=== PATIENT | male | born 1945 | race Caucasian/White ===

== ENCOUNTER 2020-02-08 07:01 | Outpatient (CLI) | payer MEDICARE, OTHER, SELFPAY ==
--- NOTE | 2020-02-08 07:00 | XRR_ITS ---
PROCEDURE INFORMATION: Exam: XR Abdomen, 1 View Exam date and time: 02/08/2020 7:10 AM Age: 74 years old Clinical indication: Condition or disease; Kidney or ureter condition; Calculus (stone) in kidney TECHNIQUE: Imaging protocol: XR of the abdomen. Views: Frontal supine view of the abdomen. 1 View. COMPARISON: CR XR KUB [id number] 08/20/2018 10:14 AM FINDINGS: Gastrointestinal tract: There is increased retained stool within the colon, compatible with constipation. Organs: No calcifications project over the expected location of either kidney or along the course of either ureter. Vasculature: Pelvic calcifications are presumably phleboliths. Bones/joints: Unremarkable. XR/XR KUB [id number] IMPRESSION: No radiopaque calculi identified.
== END 2020-02-08 07:02 | disposition home or self-care (01) ==
LOC: RAD 07:07
PROVIDERS: PCP Nurse Practitioner Family; Visit Provider Urology
DX: N20.0 Calculus of kidney (principal); N40.0 Benign prostatic hyperplasia without lower urinary tract symptoms
CPT/HCPCS: 74018; 81001

== ENCOUNTER → 2020-03-15 15:20 | Outpatient (BNVA) | payer MEDICARE, OTHER, SELFPAY | PROVIDERS: PCP Nurse Practitioner Family; Visit Provider Dermatology | DX: D48.9 Neoplasm of uncertain behavior, unspecified (principal); L57.0 Actinic keratosis; B35.1 Tinea unguium | CPT/HCPCS: 11102; 11103; 17000; 17003; 88304; 88305; 99203; 99204 ==

== ENCOUNTER → 2020-04-05 11:02 | Outpatient (BNVA) | payer MEDICARE, OTHER, SELFPAY | PROVIDERS: PCP Nurse Practitioner Family; Visit Provider Dermatology | DX: C44.91 Basal cell carcinoma of skin, unspecified (principal); C44.619 Basal cell carcinoma of skin of left upper limb, including shoulder; D09.9 Carcinoma in situ, unspecified; D48.9 Neoplasm of uncertain behavior, unspecified; D04.61 Carcinoma in situ of skin of right upper limb, including shoulder | CPT/HCPCS: 11606; 12032; 17000; 88304; 88305 ==

== ENCOUNTER → 2020-04-19 08:31 | Outpatient (BNVA) | payer MEDICARE, OTHER, SELFPAY | PROVIDERS: PCP Nurse Practitioner Family; Visit Provider Dermatology | DX: Z48.02 Encounter for removal of sutures (principal) | CPT/HCPCS: 99212 ==

== ENCOUNTER → 2020-06-05 13:18 | Outpatient (BNVA) | payer MEDICARE, OTHER, SELFPAY | PROVIDERS: PCP Nurse Practitioner Family; Visit Provider Dermatology | DX: D48.9 Neoplasm of uncertain behavior, unspecified (principal) | CPT/HCPCS: 88304 ==

== ENCOUNTER 2020-08-30 12:41 | Outpatient (CLI) | payer MEDICARE, OTHER, SELFPAY ==
--- NOTE | 2020-08-30 12:47 | XR_ITS ---
WS: [id number] HAND RIGHT TECHNIQUE: 3 views of the right hand CLINICAL INFORMATION: DORSAL HAND HARD EDEMA POST TRAUMATIC COMPARISON: None. FINDINGS: Soft tissue edema. No visualized fractures. Tiny chronic ulna styloid avulsion. 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 No acute fractures.
== END 2020-08-30 12:42 | disposition home or self-care (01) ==
LOC: RADWPI 12:45
PROVIDERS: PCP Nurse Practitioner Family; Visit Provider Nurse Practitioner Family
DX: R60.0 Localized edema (principal)
CPT/HCPCS: 73130

== ENCOUNTER 2021-02-07 07:38 | Outpatient (CLI) | payer MEDICARE, OTHER, SELFPAY ==
--- NOTE | 2021-02-07 07:30 | XR_ITS ---
WS: [id number] KUB, AP view, 02/07/2021 Clinical Data: STONES Comparison: KUB, 02/08/2020. Findings: No abnormal intraabdominal masses or calcifications are seen. There is no dilatated small bowel or ev idence of obstruction. There is fecal material throughout the colon. There are phleboliths in the true pelvis. XR/XR KUB [id number] Impression: Negative KUB.
== END 2021-02-07 07:39 | disposition home or self-care (01) ==
LOC: RAD 07:41
PROVIDERS: PCP Nurse Practitioner Family; Visit Provider Urology
DX: N20.9 Urinary calculus, unspecified (principal)
CPT/HCPCS: 74018; 81003

== ENCOUNTER → 2021-04-24 14:38 | Outpatient (BNVA) | payer MEDICARE, OTHER, SELFPAY | PROVIDERS: PCP Nurse Practitioner Family; Visit Provider Podiatrist Foot & Ankle Surgery | DX: M79.671 Pain in right foot (principal); M19.071 Primary osteoarthritis, right ankle and foot | CPT/HCPCS: 73630 ==

== ENCOUNTER 2022-02-07 08:33 | Outpatient (CLI) | payer MEDICARE, SELFPAY ==
--- NOTE | 2022-02-07 08:15 | XR_ITS ---
WS: [id number] XR KUB [id number] REASON FOR EXAM: History of Kidney Stones FINDINGS: No urinary tract calculi identified. No free air or retroperitoneal air. Unremarkable bowel gas pattern. Degenerative spondylosis lumbar spine. XR/XR KUB [id number] IMPRESSION: No urinary tract calculi identified. Abdomen otherwise unremarkable.
== END 2022-02-07 08:34 | disposition home or self-care (01) ==
PROVIDERS: PCP Nurse Practitioner Family; Visit Provider Urology
DX: N52.9 Male erectile dysfunction, unspecified (principal); R39.15 Urgency of urination; Z87.442 Personal history of urinary calculi
CPT/HCPCS: 74018; 81003; 99213

== ENCOUNTER → 2022-04-23 08:04 | Outpatient (BNVA) | payer MEDICARE, OTHER, SELFPAY | PROVIDERS: PCP Nurse Practitioner Family; Visit Provider Podiatrist Foot & Ankle Surgery | DX: M19.071 Primary osteoarthritis, right ankle and foot (principal) | CPT/HCPCS: 99214 ==

== ENCOUNTER 2022-10-30 19:31 | Emergency (ER) | payer MEDICARE, OTHER, SELFPAY ==
[2022-10-30 19:35] VITALS: BP 149/84; PULSE 81; RESP 16; TEMP 36.6; O2SAT 98
--- NOTE | 2022-10-30 19:52 | XRR_ITS ---
PROCEDURE INFORMATION: Exam: XR Right Foot Exam date and time: 10/30/2022 8:14 PM Age: 77 years old Clinical indication: Injury or trauma; Other: Dropped a piece of metal on it; Blunt trauma and swelling (edema); Foot; Right TECHNIQUE: Imaging protocol: Radiologic exam of the right foot. Views: 3 or more views. COMPARISON: No relevant prior studies available. FINDINGS: Bones/joints: Nondisplaced transverse fractures noted through the base of the 4th proximal phalanx and 5th distal phalanx. Soft tissues: Normal. XR/XR foot RT min 3V* [id number] IMPRESSION: Nondisplaced fractures through the base of the 4th proximal phalanx and 5th distal phalanx.
--- NOTE | 2022-10-30 21:06 | W.ED.EXTPRO ---
HPI - Extremity Problem General: Chief complaint: Extremity Injury, Lower Stated complaint: right foot injury Time Seen by Provider: 10/30/22 20:28 Source: patient Mode of arrival: ambulatory Limitations: no limitations History of Present Illness: 77-year-old male states he did dropped a piece of equipment on his right foot he does have bruising and swelling to his right foot this happened this afternoon he has pain over his distal toes mainly the fourth and third toe denies any other injuries. He rates his pain a 5 out of 10 worse with walking improved with rest Associated symptoms: Deny chest pain, fever(s) or rash Review of Systems Const: Denies: fever(s), chills, body aches or change in appetite Eyes: Denies: blurry vision or eye discomfort ENMT: Denies: throat pain or dental pain Card: Denies: chest pain Resp: Denies: dyspnea GI: Denies: abdominal pain, nausea, vomiting or diarrhea : Denies: dysuria Musc: Reports: extremity pain Skin/Breast: Denies: rash Neuro: Denies: headache(s) Psych: Denies: depression Jorge L/Lymph: Denies: easy bruising All/Imm: Denies: urticaria PFSH ED PFSH: Medical History BPH (benign prostatic hyperplasia) Erectile dysfunction History of kidney stones History of nonmelanoma skin cancer Hypertension Urinary urgency Surgical History S/P ureteral stent placement Family History Mother Thyroid disease Other Cancer Hypertension Social History Smoking and tobacco status: never smoked Alcohol intake: never Marital status: Current occupational status: retired Physical Exam Const: COMMON NORMALS: no acute distress and patient oriented x3 HENMT: COMMON NORMALS: normocephalic HEAD & SCALP: normocephalic Eye: COMMON NORMALS: conjunctivae normal CONJUNCTIVA: Yes conjunctivae normal Neck/C-Spine: COMMON NORMALS: supple Chest: COMMONS NORMALS: normal inspection of the chest Resp: COMMON NORMALS: normal respiratory effort Cardio: COMMON NORMALS: regular rate RATE: regular rate GI: INSPECTION: Yes normal to inspection Extremity: OTHER: Contusion noted to his right foot tenderness over base of his fourth and third toe Neuro: COMMON NORMALS: patient oriented x3 Psych: COMMON NORMALS: mental status grossly normal Skin: COMMON NORMALS: no rashes or lesions noted GENERAL SKIN EXAM: no rashes or lesions noted Course Vital Signs: Vital signs: Vital Signs Temperature 97.8 F 10/30/22 19:35 Pulse Rate 81 10/30/22 19:35 Respiratory Rate 16 10/30/22 19:35 Blood Pressure 149/84 10/30/22 19:35 Pulse Oximetry 98 10/30/22 19:35 Oxygen Delivery Me thod 10/30/22 19:35 MDM - Extremity (Nontraumatic) Medical Decision Making Patient presents here with a toe fracture will place in a hard sole shoe he does have crutches at home we will get him follow-up with podiatry he is to ice. Discharge Plan Discharge Patient Disposition: Home Clinical Impression: Fracture of toe Qualifiers: Encounter type: initial encounter Toe: lesser toe Fracture type: closed Phalanx: proximal Fracture alignment: nondisplaced Laterality: right Qualified Code(s): S92.514A - Nondisplaced fracture of proximal phalanx of right lesser toe(s), initial encounter for closed fracture Condition: Stable Prescriptions: New hydrocodone-acetaminophen 5-325 mg tablet 1 tab PO Q6H PRN (Reason: pain) Qty: 14 0RF No Action glucosamine sulfate [Glucosamine] 500 mg tablet 500 mg PO BID Rx Instructions: administer with meals losartan 25 mg tablet 25 mg PO DAILY meloxicam 15 mg tablet 15 mg PO DAILY Qty: 30 6RF Discharge Orders: Discharge ED (Routine); Ordered 10/30/22 Ordered By: Rigoberto Garcia Referrals: Ji Presley MD [Primary Care Provider] - Vick Herr DPM [Physician] - 1-3 days Discharge Diet: Advance as tolerated Discharge Activity: Increase activity as tolerated Patient Instructions: Toe Fracture (ED), Opioid Safety Coding Level of Care Code ED Learning Strategist for Simi Falk
[2022-10-30] MEDS: HYDROcodone-acetaminophen 5-325 mg Tablet 1 TAB PO (21:13)
--- NOTE | 2022-10-31 09:40 | DCPLANNER ---
Addendum entered by Sruthi Seaman 11/01/22 07:56: Patient had a follow up appointment scheduled with podiatry on 10.31.22 - patient did attend appointment Original Note: dry cleaning manager had message to schedule a follow up appointment for patient with podiatry. dry cleaning manager sent patients information to the front office staff at podiatry. Patients information will be printed and reviewed. Clinic will call patient with appointment information.
== END 2022-10-30 21:29 | disposition home or self-care (01) ==
PROVIDERS: Emergency Provider Emergency Medicine; PCP Family Medicine
DX: S92.514A Nondisplaced fracture of proximal phalanx of right lesser toe(s), initial encounter for closed fracture (principal); I10 Essential (primary) hypertension; W20.8XXA Other cause of strike by thrown, projected or falling object, initial encounter
CPT/HCPCS: 73630; 99283

== ENCOUNTER → 2022-10-31 09:41 | Outpatient (BNVA) | payer MEDICARE, OTHER, SELFPAY | PROVIDERS: PCP Family Medicine; Referring Provider Emergency Medicine; Visit Provider Podiatrist Foot & Ankle Surgery | DX: S92.501A Displaced unspecified fracture of right lesser toe(s), initial encounter for closed fracture (principal); W30.89XA Contact with other specified agricultural machinery, initial encounter | CPT/HCPCS: 99213 ==

== ENCOUNTER → 2022-11-27 14:03 | Outpatient (BNVA) | payer MEDICARE, OTHER, SELFPAY | PROVIDERS: PCP Family Medicine; Visit Provider Podiatrist Foot & Ankle Surgery | DX: S92.341A Displaced fracture of fourth metatarsal bone, right foot, initial encounter for closed fracture (principal); X58.XXXA Exposure to other specified factors, initial encounter | CPT/HCPCS: 73630; 99213 ==

== ENCOUNTER → 2023-04-22 08:00 | Outpatient (BNVA) | payer MEDICARE, OTHER, SELFPAY | PROVIDERS: PCP Family Medicine; Visit Provider Podiatrist Foot & Ankle Surgery | DX: M19.071 Primary osteoarthritis, right ankle and foot (principal) | CPT/HCPCS: 99213 ==

== ENCOUNTER → 2023-05-07 13:28 | Outpatient (BNVA) | payer MEDICARE, OTHER, SELFPAY | PROVIDERS: PCP Family Medicine; Visit Provider Nurse Practitioner Family | DX: L82.1 Other seborrheic keratosis (principal); D22.5 Melanocytic nevi of trunk; L57.8 Other skin changes due to chronic exposure to nonionizing radiation; L81.4 Other melanin hyperpigmentation; L57.0 Actinic keratosis | CPT/HCPCS: 17000; 99213 ==

== ENCOUNTER → 2023-11-06 08:20 | Outpatient (BNVA) | payer MEDICARE, OTHER, SELFPAY | PROVIDERS: PCP Family Medicine; Visit Provider Nurse Practitioner Family | DX: L57.0 Actinic keratosis (principal); L23.89 Allergic contact dermatitis due to other agents; L82.1 Other seborrheic keratosis; D22.5 Melanocytic nevi of trunk; L57.8 Other skin changes due to chronic exposure to nonionizing radiation; L81.4 Other melanin hyperpigmentation | CPT/HCPCS: 17000; 99214 ==

== ENCOUNTER 2024-06-10 18:21 | Inpatient (IN) | payer MEDICARE, OTHER, SELFPAY ==
[2024-06-10 19:15] VITALS: BP 114/65; PULSE 102; RESP 20; TEMP 36.8; O2SAT 93; BMI 32.5
--- NOTE | 2024-06-10 19:23 | USR_ITS ---
PROCEDURE INFORMATION: Exam: US Scrotum Exam date and time: 06/10/2024 9:16 PM Age: 78 years old Clinical indication: Scrotum pain; Patient HX: Recent UTI; Additional info: Right testicular pain TECHNIQUE: Imaging protocol: Real-time ultrasound of the scrotum and contents with color Doppler and image documentation. COMPARISON: No relevant prior studies available. FINDINGS: Right testicle: The right testis is unremarkable. The right testis measures 4.9 x 2.9 x 3.4 cm. There is flow on Doppler imaging. Left testicle: The left testis is unremarkable. The left testis measures 4.1 x 2.9 x 3.5 cm. There is flow on Doppler imaging. Epididymides: Enlarged right epididymis with hypoechoic, mildly heterogenous echotexture. There is no abnormal flow on Doppler imaging, these findings may represent sequela of prior epididymitis. The left epididymis is unremarkable. Scrotum/soft tissues: Complex hydroceles with internal debris bilaterally, small on the right and large on the left. US/US scrotum [id number] IMPRESSION: 1. Complex hydroceles with internal debris bilaterally, small on the right and large on the left. 2. Enlarged right epididymis with hypoechoic, mildly heterogenous echotexture. There is no abnormal flow on Doppler imaging, these findings may represent sequela of prior epididymitis.
--- NOTE | 2024-06-10 19:24 | ECG_ITS ---
[facility]10 Pat Name: Enriqueta Kim Department: Room: Gender: Male Lens Finisher: : 1945 Requested By: Charo Colbert Order Number: [id number] Navi MD: Anushka Agarwal M.D. Measurements Intervals [place] Rate: 98 P: 11 TN: 238 QRS: 87 QRSD: 102 T: 9 QT: 331 QTc: 423 Interpretive Statements SINUS RHYTHM WITH FIRST DEGREE AV BLOCK LOW QRS VOLTAGE IN PRECORDIAL LEADS [QRS DEFLECTION < 1.0 mV IN CHEST LEADS] INCOMPLETE RIGHT BUNDLE BRANCH BLOCK PROBABLE INFERIOR MYOCARDIAL INFARCTION , PROBABLY OLD No previous ECG available for comparison Electronically Signed On 06-11-2024 12:21:03 CDT by Anushka Agarwal M.D. [email or web address]
--- NOTE | 2024-06-10 19:24 | XRR_ITS ---
PROCEDURE INFORMATION: Exam: XR Chest Exam date and time: 06/10/2024 7:34 PM Age: 78 years old Clinical indication: Other: Weakness TECHNIQUE: Imaging protocol: Radiologic exam of the chest. Views: 1 view. COMPARISON: No relevant prior studies available. FINDINGS: Lungs: Lungs are clear bilaterally. Pleural spaces: No pleural effusion. No pneumothorax. Heart/Mediastinum: Cardiac silhouette is moderately enlarged. Mediastinal contours are unremarkable. Vasculature: Vascular calcifications in the aorta. Bones/joints: Unremarkable for age. XR/XR chest 1V portable [id number] IMPRESSION: 1. No acute cardiopulmonary process. 2. Incidental/nonacute findings are listed in the report.
--- NOTE | 2024-06-10 19:26 | CTR_ITS ---
PROCEDURE INFORMATION: Exam: CT Head Without Contrast Exam date and time: 06/10/2024 7:53 PM Age: 78 years old Clinical indication: Other: Weakness, dizzy TECHNIQUE: Imaging protocol: Computed tomography of the head without contrast. Sagittal and coronal reformatted images were created and reviewed. Radiation optimization: All CT scans at this facility use at least one of these dose optimization techniques: automated exposure control; mA and/or kV adjustment per patient size (includes targeted exams where dose is matched to clinical indication); or iterative reconstruction. COMPARISON: No relevant prior studies available. RADIATION DOSE METRICS: Total DLP (mGy-cm): 1076.98 FINDINGS: Brain: No acute intracranial hemorrhage. No acute infarct. No intra-axial or extra-axial masses. Dhaliwal-white matter differentiation is preserved. No cerebral edema. No extra-axial fluid collections. No midline shift. No evidence for Chiari 1 malformation. Mild atrophy of the brain parenchyma. Mildly decreased attenuation in the deep white matter, consistent with mild chronic microangiopathic change. Cerebral ventricles: No hydrocephalus. Paranasal sinuses: Visualized paranasal sinuses are clear. Mastoid air cells: Visualized mastoid air cells are clear. Orbital cavities: No acute abnormality in the visualized orbits. Nasal cavity: Moderate right nasal septal deviation. Bones: Unremarkable. No acute fracture. Soft tissues: No acute abnormality of the extracranial soft tissues. Vasculature: Moderate atherosclerotic changes in the visualized arteries. CT/CT head wo con* [id number] IMPRESSION: 1. No acute abnormality of the brain. 2. Mild atrophy of the brain parenchyma. 3. Mild chronic white matter microangiopathic change. 4. Incidental/nonacute findings are listed in the report.
--- NOTE | 2024-06-10 19:26 | ED_ITS ---
HPI - Male Genitourinary 2 General: Chief complaint: Urogenital-Male Stated complaint: severe low right groin pain dizzy Time Seen by Provider: 06/10/24 19:20 History of Present Illness: 78-year-old man with history of hyperten favio who presents to the emergency room with weakness. He says today he has felt more weak and had become lightheaded and off balance. He is also having some pain in his right testicle. He recently was treated for urinary tract infection. He said he had been having some urinary incontinence. Seems that has improved some. No nausea or vomiting. No shortness of breath. No chest pain. No cough. No abdominal pain. No focal motor deficits. No slurred speech. Related Data Home Medications Medication Instructions Recorded Confirmed glucosamine sulfate 500 mg tablet 500 mg PO BID 03/15/20 04/22/23 (Glucosamine) losartan 25 mg tablet 25 mg PO DAILY 02/07/21 04/22/23 Previous Rx's Medication Instructions Recorded hydrocodone 5 mg-acetaminophen 325 1 tab PO Q6H PRN pain #14 tabs 10/30/22 mg tablet meloxicam 15 mg tablet See Rx Instructions .Route 11/04/23 .COMPLEX #30 tabs Allergies Allergy/AdvReac Type Severity Reaction Status Date / Time venom-wasp Allergy swelling Verified 04/22/23 08:02 Review of Systems 2 Narrative: Constitutional symptoms: Negative except as documented in HPI. Skin symptoms: Negative except as documented in HPI. Eye symptoms: Negative except as documented in HPI. ENMT symptoms: Negative except as documented in HPI. Respiratory symptoms: Negative except as documented in HPI. Cardiovascular symptoms: Negative except as documented in HPI. Gastrointestinal symptoms: Negative except as documented in HPI. Genitourinary symptoms: Negative except as documented in HPI. Musculoskeletal symptoms: Negative except as documented in HPI. Neurologic symptoms: Negative except as documented in HPI. Psychiatric symptoms: Negative except as documented in HPI. Endocrine symptoms: Negative except as documented in HPI. PFSH ED 2 PFSH: Medical History BPH (benign prostatic hyperplasia) Erectile dysfunction History of kidney stones History of nonmelanoma skin cancer Hypertension Urinary urgency Surgical History S/P ureteral stent placement Family History Mother Thyroid disease Other Cancer Hypertension Social History Smoking and tobacco/nicotine status: never used tobacco/nicotine Alcohol intake: never Substance/Drug Use: never Marital status: Current occupational status: retired Physical Exam 2 Narrative: EXAM NARRATIVE: General: Alert, no acute distress. Skin: Warm, dry. Head: Normocephalic, atraumatic. Neck: Supple, trachea midline. Eye: Extraocular movements are intact. Ears, nose, mouth and throat: mucosa moist. Cardiovascular: Regular, Normal peripheral perfusion. Respiratory: Lungs are clear to auscultation, respirations are non-labored, breath sounds are equal, Symmetrical chest wall expansion. Gastrointestinal: Soft, Nontender, Non distended Musculoskeletal: Normal ROM, no deformity. Neurological: Alert and oriented, No focal neurological deficit observed. Psychiatric: Cooperative, appropriate mood & affect. Course 2 Vital Signs: Vital signs: Vital Signs Temperature 98.2 F 06/10/24 19:15 Pulse Rate 96 06/10/24 22:07 Respiratory Rate 16 06/10/24 22:07 Blood Pressure 113/58 06/10/24 22:07 Pulse Oximetry 93 06/10/24 22:07 Oxygen Delivery Me thod Room Air 06/10/24 22:07 MDM - Male Medical Decision Making Medical decision making: Differential diagnosis for patient presenting with generalized weakness including but not limited to and based on the above HPI, review of systems and physical exam: Sepsis. Dehydration. Renal failure. Electrolyte abnormalities. Anemia. Congestive heart failure. Hypotension. Coronary syndrome. Hepatitis. Cirrhosis. Infections such as pneumonia, urinary tract infection, [place]ne illness, Cellulitis, Viral infections including influenza and Covid-19. Workup: labwork and lab/exam driven imaging ordered to evaluate, rule in and rule out above pathologies. EKG: Time 1928. Rate 98. Normal sinus rhythm, No ST-T changes, no ectopy, first degree AV Block, EP Interpretation. This was reviewed and interpreted by myself the ER physician at 193. Repeat EKG: Time 2147. Rate 76. Normal sinus rhythm, No ST-T changes, no ectopy, first degree AV Block, EP Interpretation. This was reviewed and interpreted by myself the ER physician at 2150. Heart rate has decreased by about 20. No other acute changes from previous EKG done today here in the emergency room CT head: Patient had some confusion so a CT of the head was ordered. No acute intracranial process. no intracranial hemorrhage, no evidence of infarct. no evidence of acute fracture.This was reviewed and interpreted by myself the ER physician. Chest x-ray: No acute process. No infiltrate. No pneumothorax. This was reviewed and interpreted by myself the ER physician. Lab Review: Laboratory results were reviewed and interpreted by myself the emergency room physician. Significant leukocytosis with a count of 30,000. No anemia. Creatinine are elevated above his baseline at 22 and 1.5. Ultrasound of the scrotum shows a cystocele and epididymitis. This was reviewed and interpreted by myself the emergency room physician. I also reviewed the radiology report. CT of the abdomen pelvis without contrast: There is no ureteral stones or obstruction. Appears to have new cystitis and several other changes that are listed below in the radiology official read. This was reviewed and interpreted by myself the emergency room physician. I also reviewed the radiology report. I reviewed the patient's medical record. Reexamination: Patient has had some nausea and vomiting. His blood pressure has improved some with fluids. He is had no altered mental status or no focal motor deficits here. No increased work of breathing. No oxygen requirements. He does tell me that he was treated with Macrobid for the UTI. Consultation: I spoke with Dr. Ortiz who is on-call for the hospitalist service who agrees to admission. Assessment and plan: Urinary tract infection Cystitis Sepsis Leukocytosis Hypotension Lactic acidosis ?Zofran for vomiting -2 L normal saline bolus. Fluid volumes based on ideal body weight. -Broad-spectrum antibiotics were administered. Zyvox and cefepime. Urine is nitrite negative so would have concern for gram-positive's. -Sepsis quality measures. -Lactic acid with a reflex was ordered. -Blood cultures were ordered. -I discussed the patient with the hospitalist on-call who is admitting the patient. - Discussed findings and plan with patient. Answered any questions. - All laboratory values were reviewed and interpreted personally by myself, the ER physician - All imaging was reviewed and interpreted personally by myself, the ER physician. - Evaluation and treatment of this problem were appropriate in the emergency setting Critical care -I spent a total of >35 minutes of critical care time managing the patient, independent of any other practitioner. -The time involved in the performance of separately reportable procedures was not counted towards critical care time. Lab Data 06/10/24 20:20 06/10/24 20:20 Radiology Impressions Scrotum Ultrasound 06/10/24 19:23 IMPRESSION: 1. Complex hydroceles with internal debris bilaterally, small on the right and large on the left. 2. Enlarged right epididymis with hypoechoic, mildly heterogenous echotexture. There is no abnormal flow on Doppler imaging, these findings may represent sequela of prior epididymitis. Chest X-Ray 06/10/24 19:24 IMPRESSION: 1. No acute cardiopulmonary process. 2. Incidental/nonacute findings are listed in the report. Head CT 06/10/24 19:26 IMPRESSION: 1. No acute abnormality of the brain. 2. Mild atrophy of the brain parenchyma. 3. Mild chronic white matter microangiopathic change. 4. Incidental/nonacute findings are listed in the report. Abdomen/Pelvis CT 06/10/24 22:00 IMPRESSION: 1. Interval development of diffuse, mild bladder wall thickening. In the correct clinical setting, this may suggest cystitis. Recommend correlation with laboratory findings. Alternatively, this may be secondary to chronic outlet obstruction. 2. Stable hypodense focus in the liver compared with 11/06/2016. Stability suggests this is due to a benign finding such as a hepatic hemangioma. 3. 2.3 x 2.2 cm hypodense/isodense focus with rim calcification in the anterior spleen. The amount of rim calcification has increased, the focus is stable in size however. Findings may represent increasing calcification within an old hematoma. 4. Stable mild enlargement of the prostate. Stable prostate calcification. 5. Sigmoid diverticulosis. No evidence for diverticulitis. 6. There is ossification at the posterior aspect of the right sacroiliac joint at the level of S2 of uncertain etiology, this may be sequela of degenerative change. 7. Incidental/nonacute findings are listed in the report. Laboratory Results WBC 30.23 10^3/uL (3.29-11.43) H* 06/10/24 20:20 RBC 4.93 10^6/uL (3.85-5.65) 06/10/24 20:20 Hgb 14.10 g/dL (11.27-16.99) 06/10/24 20:20 Hct 44.4 % (37-53) 06/10/24 20:20 MCV 90.1 fl (82-101) 06/10/24 20:20 MCH 28.6 pg (27-33) 06/10/24 20:20 MCHC 31.8 g/dL (30-55) 06/10/24 20:20 RDW 13.8 % (12.1-15.1) 06/10/24 20:20 Plt Count 301 10^3/cmm (157-399) 06/10/24 20:20 MPV 9.3 fL (7.4-10.4) 06/10/24 20:20 Neut % (Auto) 84.4 % 06/10/24 20:20 Lymph % (Auto) 7.4 % 06/10/24 20:20 Bertie % (Auto) 6.4 % 06/10/24 20:20 Eos % (Auto) 0.0 % 06/10/24 20:20 Baso % (Auto) 0.3 % 06/10/24 20:20 Neut # (Auto) 25.51 10^3/uL (1.8-7.7) H 06/10/24 20:20 Lymph # (Auto) 2.3 10^3/uL (0.8-4.8) 06/10/24 20:20 Bertie # (Auto) 1.9 10^3/uL (0.2-0.9) H 06/10/24 20:20 Eos # (Auto) 0.0 10^3/uL (0.0-0.8) 06/10/24 20:20 Baso # (Auto) 0.1 10^3/uL (0.0-0.1) 06/10/24 20:20 Nucleated RBC % (auto) 0 % 06/10/24 20:20 Nucleated RBCs # 0.0 /100WBC 06/10/24 20:20 Sodium 133 mmol/L (136-145) L 06/10/24 20:20 Potassium 4.3 mmol/L (3.5-5.1) 06/10/24 20:20 Chloride 100 mmol/L (98-107) 06/10/24 20:20 Carbon Dioxide 20 mmol/L (22-29) L 06/10/24 20:20 Anion Gap 17.3 (5-19) 06/10/24 20:20 BUN 22 mg/dL (8-23) 06/10/24 20:20 Creatinine 1.5 mg/dL (0.7-1.2) H 06/10/24 20:20 GFR Calculation Not Reportable 06/10/24 20:20 Glucose 150 mg/dL (65-115) H 06/10/24 20:20 Calculated Osmolality 282 mOsm/kg (285-295) L 06/10/24 20:20 Lactic Acid 2.8 mmol/L (0.5-2.2) H 06/10/24 20:20 Calcium 8.8 mg/dL (8.5-10.5) 06/10/24 20:20 Total Bilirubin 0.6 mg/dL (0.15-1.2) 06/10/24 20:20 AST 12 U/L (0-40) 06/10/24 20:20 ALT 12 U/L (0-41) 06/10/24 20:20 Alkaline Phosphatase 78 U/L (40-130) 06/10/24 20:20 Total Protein 6.5 g/dL (6.6-8.7) L 06/10/24 20:20 Albumin 3.9 g/dL (3.5-5.2) 06/10/24 20:20 Globulin 2.6 g/dL (1.3-4.6) 06/10/24 20:20 Urine Color Dark yellow (Yellow) A 06/10/24 20:15 Urine Appearance Cloudy (CLEAR) A 06/10/24 20:15 Urine pH 5.0 (5-7) 06/10/24 20:15 Ur Specific [place] 1.026 (1.005-1.030) 06/10/24 20:15 Urine Protein Trace (Negative) A 06/10/24 20:15 Urine Glucose (UA) Negative (Normal) 06/10/24 20:15 Urine Ketones Negative (Negative) 06/10/24 20:15 Urine Blood 3+ (Negative) A 06/10/24 20:15 Urine Nitrate Negative (Negative) 06/10/24 20:15 Urine Bilirubin Negative (Negative) 06/10/24 20:15 Urine Urobilinogen 1.0 mg/dL (Negative) 06/10/24 20:15 Ur Leukocyte Esterase 2+ (Negative) A 06/10/24 20:15 Urine RBC 21-50 /hpf (0-2) H 06/10/24 20:15 Urine WBC 21-50 /hpf (0-5) H 06/10/24 20:15 Ur Squamous Epith Cells 11-20 /hpf (0-5) 06/10/24 20:15 Amorphous Sediment Not Reportable 06/10/24 20:15 Urine Bacteria None seen /hpf (NONE) 06/10/24 20:15 Hyaline Casts 24.38 /lpf 06/10/24 20:15 Urine Mucus 3+ /hpf 06/10/24 20:15 Coronavirus (PCR) Negative (Negative) 06/10/24 20:07 Influenza A (PCR) Negative (Negative) 06/10/24 20:07 Influenza Type B (PCR) Negative (Negative) 06/10/24 20:07 RSV (PCR) Negative (Negative) 06/10/24 20:07 All radiology interpretation(s) finalized by discharge Discharge Plan Discharge Patient Disposition: Admitted As Inpatient Clinical Impression: Urinary tract infection, Sepsis, Cystitis Condition: Stable Coding Level of Care Code ED Tube Station Attendant for Simi Falk
[2024-06-10 20:33] LABS: Basophils # 0.1 10^3/uL (0.0-0.1); Basophils % 0.3 %; Hematocrit 44.4 % (37-53); Lymphocytes # 2.3 10^3/uL (0.8-4.8); Lymphocytes % 7.4 %; Mean Corpuscular HGB Conc 31.8 g/dL (30-55); Mean Corpuscular Hemoglobin 28.6 pg (27-33); Mean Corpuscular Volume 90.1 fl (82-101); Mean Platelet Volume 9.3 fL (7.4-10.4); Monocytes # 1.9 10^3/uL (0.2-0.9); Monocytes % 6.4 %; Neutrophils # 25.51 10^3/uL (1.8-7.7); Neutrophils % 84.4 %; Nucleated Red Blood Cells % 0 %; Platelet Count 301 10^3/cmm (157-399); Red Blood Count 4.93 10^6/uL (3.85-5.65); Red Cell Distribution Width 13.8 % (12.1-15.1)
[2024-06-10 20:36] LABS: White Blood Count 30.23 10^3/uL (3.29-11.43)
[2024-06-10 20:52] LABS: Lactic Sepsis W/Reflex 2.8 mmol/L (0.5-2.2)
[2024-06-10 20:56] LABS: Alanine Aminotransferase 12 U/L (0-41); Albumin Level 3.9 g/dL (3.5-5.2); Alkaline Phosphatase 78 U/L (40-130); Anion Gap 17.3 (5-19); Aspartate Amino Transferase 12 U/L (0-40); Blood Urea Nitrogen 22 mg/dL (8-23); Calcium 8.8 mg/dL (8.5-10.5); Carbon Dioxide 20 mmol/L (22-29); Chloride 100 mmol/L (98-107); Creatinine Clr Calc Pharmacy 40.2564; Globulin 2.6 g/dL (1.3-4.6); Glucose 150 mg/dL (65-115); Osmolality Calculated 282 mOsm/kg (285-295); Potassium 4.3 mmol/L (3.5-5.1); Sodium 133 mmol/L (136-145); Total Bilirubin 0.6 mg/dL (0.15-1.2); Total Protein 6.5 g/dL (6.6-8.7)
[2024-06-10] MEDS: sodium chloride 0.9% 1,000 ML 999 ML IV ×2 (21:22→22:04)
[2024-06-10 21:38] VITALS: BP 109/64; PULSE 79; RESP 16; O2SAT 95
--- NOTE | 2024-06-10 22:00 | CTR_ITS ---
PROCEDURE INFORMATION: Exam: CT Abdomen And Pelvis Without Contrast Exam date and time: 06/10/2024 10:23 PM Age: 78 years old Clinical indication: Other: Poss septic; Additional info: Sepsis TECHNIQUE: Imaging protocol: Computed tomography of the abdomen and pelvis without contrast. Sagittal and coronal reformatted images were created and reviewed. Radiation optimization: All CT scans at this facility use at least one of these dose optimization techniques: automated exposure control; mA and/or kV adjustment per patient size (includes targeted exams where dose is matched to clinical indication); or iterative reconstruction. COMPARISON: CT Abdomen/Pelvis Renal [id number] 11/06/2016 12:22 AM RADIATION DOSE METRICS: Total DLP (mGy-cm): 874.62 FINDINGS: Limitations: Evaluation of solid organs and vasculature is limited without intravenous contrast. Lungs: Visualized lungs are clear. Pleural spaces: No pleural effusion. Heart: Stable moderate enlargement of the cardiac silhouette. Liver: Stable 1.3 x 1.5 cm indeterminate hypodense focus in the right lobe of the liver (series 3, image 20). Gallbladder and biliary ducts: The gallbladder is unremarkable. No biliary ductal dilatation. Pancreas: The pancreas is unremarkable. No pancreatic ductal dilatation. Spleen: 2.3 x 2.2 cm hypodense/isodense focus with rim calcification in the anterior spleen (series 3, image 25). The amount of rim calcification has increased, the focus is stable in size however. Adrenal glands: The right and left adrenal glands are unremarkable. Kidneys and ureters: Stable simple cyst in the right kidney measuring 1.7 cm. Stable nonspecific inflammation around both kidneys. The right and left ureters are unremarkable. Stomach and bowel: Numerous diverticula in the sigmoid colon. No evidence for diverticulitis. No acute abnormality in the small bowel. The stomach is unremarkable for the degree of distension. Appendix: The appendix is visualized and is unremarkable. No findings to suggest acute appendicitis. Intraperitoneal space: No free intraperitoneal air. No ascites. No loculated fluid collections to suggest an abscess. Vasculature: Moderate atherosclerotic changes in the visualized arteries. No evidence for aortic aneurysm. Lymph nodes: No lymphadenopathy. Urinary bladder: Interval development of diffuse, mild bladder wall thickening. Reproductive: Stable mild enlargement of the prostate. Stable prostate calcification. Nonspecific parenchymal calcifications in the prostate gland. Bones/joints: Degenerative changes in the spine, sacroiliac joints, and hips. There is ossification at the posterior aspect of the right sacroiliac joint at the level of S2 of uncertain etiology, this may be sequela of degenerative change. Soft tissues: No acute abnormality in the extra-abdominal soft tissues. CT/CT abdomen pelvis wo con [id number] IMPRESSION: 1. Interval development of diffuse, mild bladder wall thickening. In the correct clinical setting, this may suggest cystitis. Recommend correlation with laboratory findings. Alternatively, this may be secondary to chronic outlet obstruction. 2. Stable hypodense focus in the liver compared with 11/06/2016. Stability suggests this is due to a benign finding such as a hepatic hemangioma. 3. 2.3 x 2.2 cm hypodense/isodense focus with rim calcification in the anterior spleen. The amount of rim calcification has increased, the focus is stable in size however. Findings may represent increasing calcification within an old hematoma. 4. Stable mild enlargement of the prostate. Stable prostate calcification. 5. Sigmoid diverticulosis. No evidence for diverticulitis. 6. There is ossification at the posterior aspect of the right sacroiliac joint at the level of S2 of uncertain etiology, this may be sequela of degenerative change. 7. Incidental/nonacute findings are listed in the report.
[2024-06-10] MEDS: cefepime 2,000 MG in sodium chloride 0.9% (plus) 50 ML 100 MG IV (22:04)
[2024-06-10 22:07] VITALS: BP 113/58; PULSE 96; RESP 16; O2SAT 93
[2024-06-10 22:16] LABS: Reflex Lactate Order REFLEX LACTIC ORDERD
[2024-06-10] MEDS: ondansetron 2 mg/ML SDV 2 mL 8 MG IVP (22:16)
[2024-06-10 22:27] LABS: Bilirubin Urine Negative (Negative); Blood Urine 3+ (Negative); Glucose Urine UA Negative (Normal); Ketones Urine Negative (Negative); Leukocyte Esterase Urine 2+ (Negative); Nitrate Urine Negative (Negative); Protein Urine Trace (Negative); Specific Gravity, Urine 1.026 (1.005-1.030); Urine Appearance Cloudy (CLEAR); Urine Color Dark Yellow (Yellow)
[2024-06-10 22:29] LABS: Bacteria Urine None Seen /hpf; Hyaline Casts Urine 24.38 /lpf; RBC Urine 21-50 /hpf (0-2); WBC Urine 21-50 /hpf (0-5)
[2024-06-10 22:40] LABS: Add Urine Culture? Yes; Mucus Urine 3+ /hpf
[2024-06-10 23:01] LABS: Covid PCR NEGATIVE (Negative); Influenza A NEGATIVE (Negative); Influenza B NEGATIVE (Negative); Respiratory Syncytial Virus Ce NEGATIVE (Negative)
[2024-06-10] MEDS: linezolid premix 600 MG/300 ML PREMIX 300 MG IV (23:25)
[2024-06-10 23:27] VITALS: BP 108/58; PULSE 70; RESP 18; O2SAT 94
[2024-06-10 23:50] LABS: Lactic Acid level (Lactate) 1.6 mmol/L (0.5-2.2)
--- NOTE | 2024-06-10 23:59 | PM.HP ---
Providers/Chief Complaint Admitting Physician: Edu Ortiz MD Primary Care Provider: Ji Presley MD Chief Complaint: severe low right groin pain dizzy History of Present Illness Enriqueta Kim is a 78 year old male with urinary tract infection treated 3 weeks ago with 7 days of Macrobid. Patient states that his urinary frequency decreased to his baseline of 3 times a night and he felt okay until this morning when he felt malaised and after going home early from [facility] at the [facility] he noted right testicle pain and nausea with vomiting. Patient tells me that 3 weeks ago he had urinary frequency but did not have dysuria or hematuria he has not had fevers but today felt clammy nauseated and like his right testicle was pinched. He has had left hydrocele for some time. He does not think that has changed. He denies penile discharge has been monogamous with his for greater than 30 years and she and he both deny any other symptoms of STD. 3 weeks ago he had some diarrhea with his UTI but no other symptoms. Patient reports taking losartan no medication allergies. Denies tobacco use alcohol is rare he wants full CODE STATUS Medications/Allergies Home Medications Medication Instructions Recorded Confirmed Last Taken Type glucosamine sulfate 500 mg tablet 500 mg PO BID 03/15/20 04/22/23 Unknown History (Glucosamine) losartan 25 mg tablet 25 mg PO DAILY 02/07/21 04/22/23 Unknown History hydrocodone 5 mg-acetaminophen 325 1 tab PO Q6H PRN pain #14 tabs 10/30/22 04/22/23 Unknown Rx mg tablet meloxicam 15 mg tablet See Rx Instructions .Route 11/04/23 Unknown Rx .COMPLEX #30 tabs Allergies Allergy/AdvReac Type Severity Reaction Status Date / Time venom-wasp Allergy swelling Verified 04/22/23 08:02 PFSH Acute PFSH: Medical History BPH (benign prostatic hyperplasia) Erectile dysfunction History of kidney stones History of nonmelanoma skin cancer Hypertension Urinary urgency Surgical History S/P ureteral stent placement Family History Mother Thyroid disease Other Cancer Hypertension Social History Smoking and tobacco/nicotine status: never used tobacco/nicotine Alcohol intake: never Substance/Drug Use: never Marital status: Current occupational status: retired Vitals/I&O/Wt Last Vital Signs Temp 98.2 F 06/10/24 19:15 Pulse 70 06/10/24 23:27 Resp 18 06/10/24 23:27 BP 108/58 06/10/24 23:27 Pulse Ox 94 06/10/24 23:27 O2 Del Method Room Air 06/10/24 23:27 06/10/24 06/10/24 06/11/24 14:59 22:59 06:59 Intake Total 1000 / 1000 105 / 2049 Balance 1000 / 1000 1049 Weight last 48 hrs Weight 88.904 kg Physical Exam Narrative: General Well-developed well-nourished male in no acute cardiopulmonary stress he is alert oriented pleasant CV regular rate and rhythm Lungs clear to auscultation bilaterally Abdomen positive bowel sounds soft nontender Calves no tenderness supratip edema Groin circumcised penis no penile discharge left hydrocele large right testicle is tender but no mass. Left suprapubic skin with a pustule approximately 5 mm in size with white head. This was not unroofed. Skin otherwise warm and dry Mood and affect normal. Patient is able to sit up for physical exam improved from earlier weakness and malaise Data 06/10/24 20:20 06/10/24 20:20 Micro: Microbiology 06/10/24 20:14 Blood Culture - Preliminary Blood SPECIMEN COLLECTED 06/10/24 20:20 Blood Culture - Preliminary Blood SPECIMEN COLLECTED A&P Assessment and plan (1) Sepsis: Patient appears to be septic from UTI. He received Zyvox and cefepime in the emergency department. I will continue with Rocephin in the morning at 9 AM (2) Urinary tract infection: As above but cannot completely exclude orchitis as his right testicle is tender (3) History of kidney stones: No kidney stone seen on CT scan and no hydronephrosis Attestations Medical Necessity Statement*: Patient is admitted for sepsis and UTI with white count of 30,000 I anticipate his hospital stay will extend the past 2 midnights Coding Level of Care Code 76900 Diagnoses Sepsis A41.9 Urinary tract infection N39.0 History of kidney stones Z87.442 Time Spent (min) 50
[2024-06-11] VITALS (8 sets, daily range): BP systolic 103–124; BP diastolic 56–72; PULSE 7–84; RESP 16–20; TEMP 36.4–36.8; O2SAT 93–98; BMI 33.7
[2024-06-11] MEDS: enoxaparin 40 mg/0.4 mL Syringe SUBCUT (01:58)
[2024-06-11 05:34] LABS: Basophils # 0.1 10^3/uL (0.0-0.1); Basophils % 0.3 %; Hematocrit 38.7 % (37-53); Lymphocytes # 3.2 10^3/uL (0.8-4.8); Lymphocytes % 13.1 %; Mean Corpuscular HGB Conc 32.3 g/dL (30-55); Mean Corpuscular Hemoglobin 29.2 pg (27-33); Mean Corpuscular Volume 90.4 fl (82-101); Mean Platelet Volume 9.8 fL (7.4-10.4); Monocytes # 1.4 10^3/uL (0.2-0.9); Monocytes % 5.6 %; Neutrophils # 19.35 10^3/uL (1.8-7.7); Neutrophils % 79.8 %; Nucleated Red Blood Cells % 0 %; Platelet Count 270 10^3/cmm (157-399); Red Blood Count 4.28 10^6/uL (3.85-5.65); White Blood Count 24.25 10^3/uL (3.29-11.43)
[2024-06-11 05:52] LABS: Anion Gap 15.2 (5-19); Blood Urea Nitrogen 21 mg/dL (8-23); Calcium 7.9 mg/dL (8.5-10.5); Carbon Dioxide 21 mmol/L (22-29); Chloride 102 mmol/L (98-107); Creatinine Clr Calc Pharmacy 43.9312; Glucose 129 mg/dL (65-115); Osmolality Calculated 283 mOsm/kg (285-295); Potassium 4.2 mmol/L (3.5-5.1); Sodium 134 mmol/L (136-145)
--- NOTE | 2024-06-11 10:08 | PC.SOCIAL ---
IMM Update pg 2 of IMM Updated and reviewed w/ patient. Copy provided and copy dated, initialed and placed in chart.
[2024-06-11] MEDS: cefTRIAXone 2,000 mg SDV 2000 MG IVP (17:12)
--- NOTE | 2024-06-11 17:15 | P.PN_ITS ---
Subjective 2 Subjective: Reports doing much better today. He does not feel as sick or tired as he did yesterday. He is no longer having testicular pain. Says he has been eating and drinking well. He has no having no problems or symptoms with voiding. Medications: Reviewed: Yes Vitals/I&O/Wt Last Vital Signs Temp 97.6 F 06/11/24 15:30 Pulse 65 06/11/24 15:30 Resp 16 06/11/24 15:30 BP 119/72 06/11/24 15:30 Pulse Ox 95 06/11/24 15:30 O2 Del Method Room Air 06/11/24 15:30 06/11/24 06/11/24 06/11/24 06:59 14:59 22:59 Intake Total 1350 / 2350 480 / 480 Balance 1350 / 2350 480 / 480 Weight last 48 hrs Weight 203 lb 6.4 oz Weight 202 lb 11.2 oz Weight 196 lb Physical Exam 2 Narrative: General: Cooperative patient in no apparent distress. Well developed. HEENT: Normocephalic, Atraumatic. External ears normal. Nasal passages patent without drainage. MMM. Heart: RRR. Resp: LCTA. No respiratory distress, no use of accessory muscles. Abd: Soft, non-tender. Non-distended. Extremities: No edema. Skin: No rash or lesions on exposed areas. Data 06/11/24 04:45 06/11/24 04:45 Micro: Microbiology 06/10/24 20:14 Blood Culture - Preliminary Blood SPECIMEN COLLECTED 06/10/24 20:20 Blood Culture - Preliminary Blood SPECIMEN COLLECTED A&P Assessment and plan (1) Sepsis: (2) Urinary tract infection: (3) History of kidney stones: Plan 78-year-old male admitted for sepsis secondary to UTI. Continue close inpatient monitoring. UA was consistent with infection. Urine and blood cultures are pending. White count is down to 24 from 30. Creatinine is improving, now is 1.4. Lactic acidosis has resolved. He is receiving ceftriaxone daily and we will continue until susceptibilities are resulted. Blood pressure is improved and is stable. He is no longer febrile. Will add tamsulosin to his medication regimen. If he remains stable overnight continues to improve, and we have identification on urine culture we will plan to discharge tomorrow. Code Status: Full IVF: None DVT PPx: Lovenox GI PPx: None ABx: Ceftriaxone Diet: Regular Discharge plan: Home when able Attestations 2 Medical Necessity Statement*: Will need continued hospital stay for treatment for UTI, pending cultures and susceptibilities, IV antibiotics, and repeat labs. Coding Level of Care Code Acute Code for Chg Fwd Moderate MDM includes number and complexity of problems actively addressed during encounter, amount and/or complexity of data reviewed/ordered and described risk of complication, morbidity or mortality of management as documented Diagnoses Sepsis A41.9 Urinary tract infection N39.0 History of kidney stones Z87.442
[2024-06-12] VITALS: BP 125/63; PULSE 59; RESP 16; TEMP 37.4; O2SAT 97
[2024-06-12] MEDS: enoxaparin 40 mg/0.4 mL Syringe SUBCUT (00:45)
[2024-06-12 04:00] VITALS: BP 124/69; PULSE 59; RESP 18; TEMP 37.1; O2SAT 96
[2024-06-12 07:52] VITALS: BP 132/75; PULSE 67; RESP 17; TEMP 37; O2SAT 96
[2024-06-12] MEDS: tamsulosin 0.4 mg Capsule PO (08:49)
[2024-06-12 11:16] LABS: Basophils # 0.1 10^3/uL (0.0-0.1); Basophils % 0.5 %; Eosinophils # 0.2 10^3/uL (0.0-0.8); Eosinophils % 1.4 %; Hematocrit 39.1 % (37-53); Lymphocytes # 2.4 10^3/uL (0.8-4.8); Lymphocytes % 18.6 %; Mean Corpuscular HGB Conc 32.5 g/dL (30-55); Mean Corpuscular Hemoglobin 29.5 pg (27-33); Mean Corpuscular Volume 90.7 fl (82-101); Mean Platelet Volume 9.3 fL (7.4-10.4); Monocytes # 1.3 10^3/uL (0.2-0.9); Monocytes % 10.3 %; Neutrophils # 8.65 10^3/uL (1.8-7.7); Neutrophils % 67.9 %; Nucleated Red Blood Cells % 0 %; Platelet Count 250 10^3/cmm (157-399); Red Blood Count 4.31 10^6/uL (3.85-5.65); Red Cell Distribution Width 13.8 % (12.1-15.1); White Blood Count 12.74 10^3/uL (3.29-11.43)
[2024-06-12] MEDS: sodium chloride 0.9% 1,000 ML 75 ML IV (11:24)
[2024-06-12 11:48] LABS: Alanine Aminotransferase 13 U/L (0-41); Albumin Level 3.3 g/dL (3.5-5.2); Alkaline Phosphatase 65 U/L (40-130); Anion Gap 10.4 (5-19); Aspartate Amino Transferase 10 U/L (0-40); Blood Urea Nitrogen 18 mg/dL (8-23); Calcium 8.4 mg/dL (8.5-10.5); Carbon Dioxide 25 mmol/L (22-29); Chloride 102 mmol/L (98-107); Globulin 2.4 g/dL (1.3-4.6); Glucose 96 mg/dL (65-115); Iron 30 ug/dL (59-158); Osmolality Calculated 278 mOsm/kg (285-295); Percent Saturation 18.4 % (20-50); Potassium 4.4 mmol/L (3.5-5.1); Sodium 133 mmol/L (136-145); Thyroid Stimulating Hormone 4.06 uIU/mL (0.27-4.20); Total Bilirubin 0.5 mg/dL (0.15-1.2); Total Iron Binding Capacity 163 mcg/dl; Total Protein 5.7 g/dL (6.6-8.7); Unsaturated Iron Binding 133 ug/dL (112-347)
[2024-06-12 11:49] LABS: Creatinine Clr Calc Pharmacy 47.2638
[2024-06-12 12:00] VITALS: BP 137/77; PULSE 64; RESP 16; TEMP 36.7; O2SAT 94
[2024-06-12 12:09] LABS: Estmated Average Glucose 128; Hemoglobin A1C 6.1 % (4.0-6.0)
[2024-06-12 12:20] LABS: Procalcitonin 0.23 ng/mL (0-0.5)
--- NOTE | 2024-06-12 15:54 | P.PN_ITS ---
Subjective 2 Subjective: Hospital course, labs appreciated. Seen with family at bedside. Patient states he is feeling a lot better. Wanting to walk around the hallway. Denies any nausea, vomiting, headache. Has remained hemodynamically stable and afebrile. Medications: Reviewed: Yes Vitals/I&O/Wt Last Vital Signs Temp 98.0 F 06/12/24 12:00 Pulse 64 06/12/24 12:00 Resp 16 06/12/24 12:00 BP 137/77 06/12/24 12:00 Pulse Ox 94 06/12/24 12:00 O2 Del Method Room Air 06/12/24 12:00 Weight last 48 hrs Weight 92.079 kg Weight 92.261 kg Weight 91.943 kg Weight 88.904 kg Physical Exam 2 Narrative: General: Cooperative patient in no apparent distress. Well developed. HEENT: Normocephalic, Atraumatic. External ears normal. Nasal passages patent without drainage. MMM. Heart: RRR. Resp: LCTA. No respiratory distress, no use of accessory muscles. Abd: Soft, non-tender. Non-distended. Extremities: No edema. Skin: No rash or lesions on exposed areas. Data 06/12/24 11:09 06/12/24 11:09 Micro: Microbiology 06/10/24 20:15 Urine Culture - Preliminary Urine,Clean Catch 06/10/24 20:14 Blood Culture - Preliminary Blood NEGATIVE TO DATE 06/10/24 20:20 Blood Culture - Preliminary Blood NEGATIVE TO DATE A&P Assessment and plan (1) Sepsis: (2) Urinary tract infection: (3) History of kidney stones: (4) Failure of outpatient treatment: Plan 78-year-old male admitted for sepsis secondary to UTI. Repeat CBC and CMP today. Has remained afebrile. Cultures so far negative. Continue with IV ceftriaxone for now. De-escalate as per culture history. Change dose to [address] abdomen pelvis without concerns for obstructive nephropathy. No baseline creatinine available. Creatinine on admission 1.5. Currently 1.4. Repeat labs today. Holding off on home dose of losartan. Patient does take meloxicam at home. Start on normal saline 75 cc/h for 1 bag. Check A1c, lipid panel, vitamin B12, folate level, procalcitonin, TSH, TIBC. Code Status: Full IVF: NS at 75 cc/h for 1 bag. DVT PPx: Lovenox GI PPx: Daily famotidine ABx: Ceftriaxone Diet: Regular Discharge plan: Home when able Attestations 2 Medical Necessity Statement*: Requires further hospitalization for management of UTI in a patient with failure to outpatient treatment, KEEGAN versus CKD Diagnoses Sepsis A41.9 Urinary tract infection N39.0 History of kidney stones Z87.442 Failure of outpatient treatment Z78.9
[2024-06-12] MEDS: cefTRIAXone 1,000 mg SDV 1000 MG IVP (17:06)
[2024-06-12 20:00] VITALS: BP 121/64; PULSE 70; RESP 18; TEMP 37.1; O2SAT 95
[2024-06-12] MEDS: famotidine 20 mg Tablet PO (20:32)
[2024-06-13] VITALS (7 sets, daily range): BP systolic 125–179; BP diastolic 68–88; PULSE 64–93; RESP 15–22; TEMP 36.4–36.9; O2SAT 95–97
[2024-06-13] MEDS: enoxaparin 40 mg/0.4 mL Syringe SUBCUT (01:10)
[2024-06-13 03:30] LABS: Basophils # 0.1 10^3/uL (0.0-0.1); Basophils % 0.7 %; Eosinophils # 0.3 10^3/uL (0.0-0.8); Eosinophils % 2.4 %; Hematocrit 38.3 % (37-53); Lymphocytes # 2.6 10^3/uL (0.8-4.8); Lymphocytes % 21.3 %; Mean Corpuscular HGB Conc 31.9 g/dL (30-55); Mean Corpuscular Hemoglobin 28.6 pg (27-33); Mean Corpuscular Volume 89.7 fl (82-101); Mean Platelet Volume 10.1 fL (7.4-10.4); Monocytes # 1.1 10^3/uL (0.2-0.9); Monocytes % 8.8 %; Neutrophils # 7.86 10^3/uL (1.8-7.7); Nucleated Red Blood Cells % 0 %; Platelet Count 280 10^3/cmm (157-399); Red Blood Count 4.27 10^6/uL (3.85-5.65); Red Cell Distribution Width 13.7 % (12.1-15.1); White Blood Count 12.08 10^3/uL (3.29-11.43)
[2024-06-13 03:51] LABS: Chol HDL Ratio 3.62 mg/dL (1.0-5.00); Cholesterol 141 mg/dL (0-200); HDL Cholesterol 39 mg/dL (60-100); LDL Cholesterol Calculated 91 mg/dL (50-129); Magnesium 2.1 mg/dL (1.7-2.3); Triglycerides 56 mg/dL (0-150); VLDL Cholestrol Calculation 11 mg/dL (0-30)
[2024-06-13 03:52] LABS: Alanine Aminotransferase 11 U/L (0-41); Albumin Level 3.3 g/dL (3.5-5.2); Alkaline Phosphatase 76 U/L (40-130); Anion Gap 12.3 (5-19); Aspartate Amino Transferase 11 U/L (0-40); Blood Urea Nitrogen 16 mg/dL (8-23); Calcium 8.3 mg/dL (8.5-10.5); Carbon Dioxide 24 mmol/L (22-29); Chloride 104 mmol/L (98-107); Creatinine Clr Calc Pharmacy 47.2638; Globulin 2.5 g/dL (1.3-4.6); Glucose 104 mg/dL (65-115); Osmolality Calculated 283 mOsm/kg (285-295); Potassium 4.3 mmol/L (3.5-5.1); Sodium 136 mmol/L (136-145); Total Bilirubin 0.4 mg/dL (0.15-1.2); Total Protein 5.8 g/dL (6.6-8.7)
[2024-06-13 04:09] LABS: Folate Level 4.8 ng/mL (4.5-32.2)
[2024-06-13] MEDS: tamsulosin 0.4 mg Capsule PO (09:30)
[2024-06-13] MEDS: losartan 50 mg Tablet 25 MG PO (13:35)
--- NOTE | 2024-06-13 14:20 | P.PN_ITS ---
Subjective 2 Subjective: No acute events overnight. Patient seen with spouse at bedside. States he is feeling a lot better. Walking around the hallway. Denies any nausea, vomiting, headache or back pain. Medications: Reviewed: Yes Vitals/I&O/Wt Last Vital Signs Temp 97.8 F 06/13/24 08:00 Pulse 64 06/13/24 11:53 Resp 15 06/13/24 11:53 BP 138/83 06/13/24 11:53 Pulse Ox 95 06/13/24 11:53 O2 Del Method Room Air 06/13/24 11:53 06/12/24 06/13/24 06/13/24 23:59 06:59 14:59 Intake Total Balance Weight last 48 hrs Weight 91.263 kg Weight 92.079 kg Physical Exam 2 Narrative: General: Cooperative patient in no apparent distress. Well developed. HEENT: Normocephalic, Atraumatic. External ears normal. Nasal passages patent without drainage. MMM. Heart: RRR. Resp: LCTA. No respiratory distress, no use of accessory muscles. Abd: Soft, non-tender. Non-distended. Extremities: No edema. Skin: No rash or lesions on exposed areas. Data 06/13/24 02:55 06/13/24 02:55 Micro: Microbiology 06/10/24 20:15 Urine Culture - Final Urine,Clean Catch A&P Assessment and plan (1) Sepsis: (2) Urinary tract infection: (3) History of kidney stones: (4) Failure of outpatient treatment: Plan 78-year-old male admitted for sepsis secondary to UTI. Repeat CBC and CMP today. Has remained afebrile. Cultures so far negative. Continue with IV ceftriaxone for now. De-escalate as per culture history. Change dose to [address] abdomen pelvis without concerns for obstructive nephropathy. No baseline creatinine available. Creatinine on admission 1.5. Currently 1.4. Repeat labs today. Holding off on home dose of losartan. Patient does take meloxicam at home. Start on normal saline 75 cc/h for 1 bag. Plan for the day: Has remained afebrile. Cultures negative. The patient was already on antibiotics prior to admission. White count has trended down to 12,000. Patient UA had blood on admission. His white count has trended down drastically. His scrotal pain is alleviated completely now. High likelihood passing of a kidney stone leading to his symptoms and UTI which seems to have resolved now. Continue with IV ceftriaxone to finish a 5-day course. Blood pressure mildly elevated. Restart home dose of losartan. Goal blood pressure less than 140/90 mmHg. Uptitrate as for goal blood pressures. Code Status: Full IVF: None DVT PPx: Lovenox GI PPx: Daily famotidine ABx: Ceftriaxone Diet: Regular Discharge plan: Home when able Attestations 2 Medical Necessity Statement*: Requires further hospitalization for management of UTI with concerns of failure to outpatient treatment in a patient with recurrent kidney stones. Diagnoses Sepsis A41.9 Urinary tract infection N39.0 History of kidney stones Z87.442 Failure of outpatient treatment Z78.9
[2024-06-13] MEDS: cefTRIAXone 1,000 mg SDV 1000 MG IVP (17:52)
[2024-06-13] MEDS: famotidine 20 mg Tablet PO (21:08)
[2024-06-14] MEDS: enoxaparin 40 mg/0.4 mL Syringe SUBCUT (00:55)
[2024-06-14 04:00] VITALS: BP 144/74; PULSE 60; RESP 20; TEMP 36.8; O2SAT 93
[2024-06-14 04:59] LABS: Magnesium 2.1 mg/dL (1.7-2.3)
[2024-06-14 07:51] VITALS: BP 130/79; PULSE 82; RESP 19; TEMP 36.6; O2SAT 94
[2024-06-14 08:47] VITALS: BP 130/79
[2024-06-14] MEDS: tamsulosin 0.4 mg Capsule PO (08:47)
[2024-06-14] MEDS: losartan 50 mg Tablet 25 MG PO (08:47)
--- NOTE | 2024-06-14 09:58 | PC.CHAP ---
Pastoral Care Encounter/Spiritual Assessment Type of Contact [] Declined casing fluid tender visit [] Patient/Family/Request visit [] Outpatient visit [] Follow-up visit [] Physician referral [] Code/Alert [x] Routine visit [] Staff referral [] Actively dying [] Patient sleeping [] Family support [] [] Out of room [] Palliative care [] [] Receiving care in room [] Pre-surgical visit [] Trauma [] Long length of stay [] ICU visit [] Other: Relational/Emotional Strength [] Patient feels connected with others/family/visitors/staff [] Distress [] Loneliness/isolation [] Abandonment Spirituality of Patient [x] Person of Pat [] Attends Sikh of their Pat [x] Believes in Prayer [] Reads Bible or Episcopalian materials [] There are Spiritual issues to be addressed [employer] [x] Prayer [x] Active listening [] Non-anxious presence [] Spiritual/emotional support [] Crisis/trauma care [] Spiritual counseling [] Bereavement support [] Provided bereavement packet [] Provided Bible/devotional materials [] Provided toy/stuffed animal, coloring book to patient or family member [] Provided Communion [] Anointing/[place] [] Salvation [x] Completed spiritual assessment [] Other: Impact on Illness or Injury [] Angry [] Fearful [] Anxious [] Often cries [] Exhaustion [] Unable to work [] Unable to attend religious [] Unable to walk/stand [] Unable to read [] Unable to drive [] Unable to eat/drink [] Unable to sleep [] Unable to be with family [] Patient intubated [] Other: Summary Time spent with patient 5 min
--- NOTE | 2024-06-14 10:33 | P.DS_ITS ---
Discharge Providers Date of Admission: 06/11/24 00:58 Date of Discharge: June 14, 2024 Attending Provider at Admission: Edu Ortiz MD Attending Provider at Discharge: Bruce Molina Primary Care Provider: Ji Presley MD Diagnoses at Discharge Discharge Diagnosis (1) Sepsis: Status: Acute (2) Urinary tract infection: Status: Acute (3) History of kidney stones: Status: Acute (4) Failure of outpatient treatment: Status: Acute Reason for Visit Reason for Visit: severe low right groin pain dizzy Hospital Course Hospital Course Very pleasant 78-year-old gentleman admitted with sepsis, urinary tract infection, does have past history of kidney stones, but no stone visualized on CT on admission. Noted 3+ microscopic hematuria in urine. Also reported scrotal pain on presentation. WBC count up to 30,000. Treated with ceftriaxone. Urine culture collected, but without any growth. Leukocytosis coming down to 12,000. He is feeling better. CT abdomen pelvis did note diffuse mild bladder wall thickening suggestive of cystitis versus chronic outlet obstruction. Was started on tamsulosin. He did not pass a stone that he knows of, although cannot excluded given his presentation. Although symptoms have improved, with some possibility of epididymitis he will complete 10-day co urse with Levaquin. Chlamydia and gonorrhea urine test is requested. Please follow-up results and for resolution/improvement. He is referred for additional assessment by urology. Physical Exam Const: COMMON NORMALS: patient oriented x3 and alert GENERAL APPEARANCE: cooperative ORIENTATION/CONSCIOUSNESS: Yes awake HENMT: COMMON NORMALS: oropharynx normal Neck/C-Spine: COMMON NORMALS: no JVD Resp: COMMON NORMALS: normal respiratory effort and clear to auscultation bilaterally AUSCULTATION: clear to auscultation bilaterally Cardio: COMMON NORMALS: no JVD, regular rhythm, S1 normal heart sound present, S2 normal heart sound present and No murmurs present (Cardio) RHYTHM: regular rhythm HEART SOUNDS: S1 normal heart sound present and S2 normal heart sound present GI: COMMON NORMALS: Normal to inspection, nondistended, normoactive bowel sounds present, Soft to palpation and non-tender PALPATION: Yes Soft to palpation Extremity: COMMON NORMALS: no joint enlargement and no pedal edema Neuro: COMMON NORMALS: patient oriented x3 and moves all extremities SENSORIUM/ORIENTATION: Yes alert Skin: COMMON NORMALS: no rashes or lesions noted GENERAL SKIN EXAM: no rashes or lesions noted Discharge Data Studies Completed and Pending Completed Studies During Hospitalization Category Date Time Status CT abdomen pelvis wo con [id number] Stat Cat Scan 06/10/24 22:[address] head wo con* [id number] Stat Cat Scan 06/10/24 19:26 Completed XR chest 1V portable [id number] Stat Exams 06/10/24 19:24 Completed US scrotum [id number] Stat Ultrasound 06/10/24 19:23 Completed Pending at discharge Category Date Time Status Blood Culture Stat Lab 06/10/24 20:20 Results Chlamydia/Gonorrh RNA,TMA URO Routine Lab 06/14/24 10:32 Ordered MAG [Magnesium] AM LABS Lab 06/15/24 04:00 Ordered Urinalysis Routine Lab 06/12/24 10:41 Ordered Urine Creatinine Routine Lab 06/12/24 10:41 Ordered Urine Lytes [Urine Random Lytes] Stat Lab 06/12/24 10:41 Ordered Vitamin B12 Routine Lab 06/12/24 11:09 Received Radiology Impressions Scrotum Ultrasound 06/10/24 19:23 IMPRESSION: 1. Complex hydroceles with internal debris bilaterally, small on the right and large on the left. 2. Enlarged right epididymis with hypoechoic, mildly heterogenous echotexture. There is no abnormal flow on Doppler imaging, these findings may represent sequela of prior epididymitis. Chest X-Ray 06/10/24 19:24 IMPRESSION: 1. No acute cardiopulmonary process. 2. Incidental/nonacute findings are listed in the report. Head CT 06/10/24 19:26 IMPRESSION: 1. No acute abnormality of the brain. 2. Mild atrophy of the brain parenchyma. 3. Mild chronic white matter microangiopathic change. 4. Incidental/nonacute findings are listed in the report. Abdomen/Pelvis CT 06/10/24 22:00 IMPRESSION: 1. Interval development of diffuse, mild bladder wall thickening. In the correct clinical setting, this may suggest cystitis. Recommend correlation with laboratory findings. Alternatively, this may be secondary to chronic outlet obstruction. 2. Stable hypodense focus in the liver compared with 11/06/2016. Stability suggests this is due to a benign finding such as a hepatic hemangioma. 3. 2.3 x 2.2 cm hypodense/isodense focus with rim calcification in the anterior spleen. The amount of rim calcification has increased, the focus is stable in size however. Findings may represent increasing calcification within an old hematoma. 4. Stable mild enlargement of the prostate. Stable prostate calcification. 5. Sigmoid diverticulosis. No evidence for diverticulitis. 6. There is ossification at the posterior aspect of the right sacroiliac joint at the level of S2 of uncertain etiology, this may be sequela of degenerative change. 7. Incidental/nonacute findings are listed in the report. Laboratory Results WBC 12.08 10^3/uL (3.29-11.43) H 06/13/24 02:55 RBC 4.27 10^6/uL (3.85-5.65) 06/13/24 02:55 Hgb 12.20 g/dL (11.27-16.99) 06/13/24 02:55 Hct 38.3 % (37-53) 06/13/24 02:55 MCV 89.7 fl (82-101) 06/13/24 02:55 MCH 28.6 pg (27-33) 06/13/24 02:55 MCHC 31.9 g/dL (30-55) 06/13/24 02:55 RDW 13.7 % (12.1-15.1) 06/13/24 02:55 Plt Count 280 10^3/cmm (157-399) 06/13/24 02:55 MPV 10.1 fL (7.4-10.4) 06/13/24 02:55 Neut % (Auto) 65.0 % 06/13/24 02:55 Lymph % (Auto) 21.3 % 06/13/24 02:55 [place] % (Auto) 8.8 % 06/13/24 02:55 Eos % (Auto) 2.4 % 06/13/24 02:55 Baso % (Auto) 0.7 % 06/13/24 02:55 Neut # (Auto) 7.86 10^3/uL (1.8-7.7) H 06/13/24 02:55 Lymph # (Auto) 2.6 10^3/uL (0.8-4.8) 06/13/24 02:55 [place] # (Auto) 1.1 10^3/uL (0.2-0.9) H 06/13/24 02:55 Eos # (Auto) 0.3 10^3/uL (0.0-0.8) 06/13/24 02:55 Baso # (Auto) 0.1 10^3/uL (0.0-0.1) 06/13/24 02:55 Nucleated RBC % (auto) 0 % 06/13/24 02:55 Nucleated RBCs # 0.0 /100WBC 06/13/24 02:55 Sodium 136 mmol/L (136-145) 06/13/24 02:55 Potassium 4.3 mmol/L (3.5-5.1) 06/13/24 02:55 Chloride 104 mmol/L (98-107) 06/13/24 02:55 Carbon Dioxide 24 mmol/L (22-29) 06/13/24 02:55 Anion Gap 12.3 (5-19) 06/13/24 02:55 BUN 16 mg/dL (8-23) 06/13/24 02:55 Creatinine 1.3 mg/dL (0.7-1.2) H 06/13/24 02:55 GFR Calculation Not Reportable 06/13/24 02:55 Glucose 104 mg/dL (65-115) 06/13/24 02:55 Estimat Average Glucose 128 06/12/24 11:09 Hemoglobin A1c 6.1 % (4.0-6.0) H 06/12/24 11:09 Calculated Osmolality 283 mOsm/kg (285-295) L 06/13/24 02:55 Lactic Acid 2.8 mmol/L (0.5-2.2) H 06/10/24 20:20 Lactic Acid (Sepsis) 1.6 mmol/L (0.5-2.2) 06/10/24 23:23 Calcium 8.3 mg/dL (8.5-10.5) L 06/13/24 02:55 Magnesium 2.1 mg/dL (1.7-2.3) 06/14/24 03:34 Iron 30 ug/dL (59-158) L 06/12/24 11:09 TIBC 163 mcg/dl 06/12/24 11:09 % Saturation 18.4 % (20-50) L 06/12/24 11:09 Unsat Iron Binding 133 ug/dL (112-347) 06/12/24 11:09 Total Bilirubin 0.4 mg/dL (0.15-1.2) 06/13/24 02:55 AST 11 U/L (0-40) 06/13/24 02:55 ALT 11 U/L (0-41) 06/13/24 02:55 Alkaline Phosphatase 76 U/L (40-130) 06/13/24 02:55 Total Protein 5.8 g/dL (6.6-8.7) L 06/13/24 02:55 Albumin 3.3 g/dL (3.5-5.2) L 06/13/24 02:55 Globulin 2.5 g/dL (1.3-4.6) 06/13/24 02:55 Triglycerides 56 mg/dL (0-150) 06/13/24 02:55 Cholesterol 141 mg/dL (0-200) 06/13/24 02:55 LDL Cholesterol, Calc 91 mg/dL (50-129) 06/13/24 02:55 Total VLDL Cholesterol 11 mg/dL (0-30) 06/13/24 02:55 HDL Cholesterol 39 mg/dL (60-100) L 06/13/24 02:55 Cholesterol/HDL Ratio 3.62 mg/dL (1.0-5.00) 06/13/24 02:55 Vitamin B12 Cancelled 06/12/24 11:09 Folate 4.8 ng/mL (4.5-32.2) 06/13/24 02:55 Procalcitonin 0.23 ng/mL (0-0.5) 06/12/24 11:09 TSH 4.06 uIU/mL (0.27-4.20) 06/12/24 11:09 Urine Color Dark yellow (Yellow) A 06/10/24 20:15 Urine Appearance Cloudy (CLEAR) A 06/10/24 20:15 Urine pH 5.0 (5-7) 06/10/24 20:15 Ur Specific [place] 1.026 (1.005-1.030) 06/10/24 20:15 Urine Protein Trace (Negative) A 06/10/24 20:15 Urine Glucose (UA) Negative (Normal) 06/10/24 20:15 Urine Ketones Negative (Negative) 06/10/24 20:15 Urine Blood 3+ (Negative) A 06/10/24 20:15 Urine Nitrate Negative (Negative) 06/10/24 20:15 Urine Bilirubin Negative (Negative) 06/10/24 20:15 Urine Urobilinogen 1.0 mg/dL (Negative) 06/10/24 20:15 Ur Leukocyte Esterase 2+ (Negative) A 06/10/24 20:15 Urine RBC 21-50 /hpf (0-2) H 06/10/24 20:15 Urine WBC 21-50 /hpf (0-5) H 06/10/24 20:15 Ur Squamous Epith Cells 11-20 /hpf (0-5) 06/10/24 20:15 Amorphous Sediment Not Reportable 06/10/24 20:15 Urine Bacteria None seen /hpf (NONE) 06/10/24 20:15 Hyaline Casts 24.38 /lpf 06/10/24 20:15 Urine Mucus 3+ /hpf 06/10/24 20:15 Coronavirus (PCR) Negative (Negative) 06/10/24 20:07 Influenza A (PCR) Negative (Negative) 06/10/24 20:07 Influenza Type B (PCR) Negative (Negative) 06/10/24 20:07 RSV (PCR) Negative (Negative) 06/10/24 20:07 Vitals Last Vital Signs Temp 97.8 F 06/14/24 07:51 Pulse 82 06/14/24 07:51 Resp 19 H 06/14/24 07:51 BP 130/79 06/14/24 08:47 Pulse Ox 94 06/14/24 07:51 O2 Del Method Room Air 06/14/24 07:51 Discharge Plan Discharge Patient Disposition: Home Condition: Stable Prescriptions: New tamsulosin 0.4 mg Capsule 0.4 mg PO DAILY Qty: 90 0RF levofloxacin 500 mg tablet 500 mg PO DAILY 10 Days Qty: 10 0RF Continued glucosamine sulfate [Glucosamine] 500 mg tablet 500 mg PO BID Rx Instructions: administer with meals losartan 25 mg tablet 25 mg PO DAILY Discontinued meloxicam 15 mg Tablet 15 mg PO DAILY nitrofurantoin monohyd/m-cryst [Macrobid] 100 mg Capsule 100 mg PO BID Rx Instructions: must administer with a meal/food Discharge Orders: Discharge Order (Routine); Ordered 06/14/24 Ordered By: Bruce Molina Referrals: Bingham,Waldo Gumaro [Referring] - 2 weeks (hematuria We have notified your physician's clinic of the need for a follow-up appointment to be scheduled. If you have not heard from them within the next 2 business days, please call them directly. ) Ji Presley MD [Primary Care Provider] - 06/18/24 9:30 am Patient Instructions: Levofloxacin (By mouth), Tamsulosin (By mouth), Urinary Tract Infection in Men (DC) Activity Restrictions/Additional Instructions: Follow-up with your primary provider for reassessment of urinary tract infection and primary provider and urology for reassessment of hematuria, thickening of urinary bladder with suspected chronic bladder outlet obstruction. You are star alvin on Flomax. Reviewed primary provider reassess testicular discomfort. With possible epididymitis you are continued on Levaquin to complete course. Please have your primary doctor reassess. As discussed, seek medical attention in case of any worsening or new concerning symptoms, in case of any worsening dysuria, blood in urine, inability to urinate, fever, or any other concerning symptoms as discussed. Discharge Attestations Time Spent in Discharge Care*: greater than 30 min Quality Metrics Clinical Quality Measures [ No reported AMI, CVA or VTE this stay] Coding Level of Care Code 92700 Total time (in minutes) for Discharge: 50 Diagnoses Sepsis A41.9 Urinary tract infection N39.0 History of kidney stones Z87.442 Failure of outpatient treatment Z78.9
[2024-06-14 11:49] VITALS: BP 108/70; PULSE 68; RESP 19; TEMP 36.6; O2SAT 92
[2024-06-14 12:26] VITALS: BP 108/70; PULSE 68; RESP 16; TEMP 36.6; O2SAT 92
[2024-06-15 18:05] LABS: Vitamin B12 285 pg/mL (232-1245)
== END 2024-06-14 12:20 | disposition home or self-care (01) | DRG 872 ==
LOC: ER 06-11 00:07 → MEDSURG 06-11 00:59
PROVIDERS: Student in an Organized Health Care Education/Training Program; Admitting Provider Internal Medicine; Emergency Provider Emergency Medicine; PCP Family Medicine; Visit Provider Internal Medicine
DX: A41.9 Sepsis, unspecified organism (principal); N30.90 Cystitis, unspecified without hematuria; I10 Essential (primary) hypertension; Z87.442 Personal history of urinary calculi
CPT/HCPCS: 0241U; 36415; 70450; 71045; 74176; 76870; 80048; 80053; 80061; 81001; 82607; 82746; 83036; 83540; 83550; 83605; 83735; 84145; 84443; 85025; 87040; 87086; 93005; 96365; 96367; 96372; 96375; 99285; J0692; J0696; J1650; J2020; J2405; J7030

== ENCOUNTER → 2024-11-05 08:17 | Outpatient (BNVA) | payer MEDICARE, OTHER, SELFPAY | PROVIDERS: PCP Family Medicine; Visit Provider Nurse Practitioner Family | DX: L23.9 Allergic contact dermatitis, unspecified cause (principal); D48.5 Neoplasm of uncertain behavior of skin; R20.8 Other disturbances of skin sensation; L82.1 Other seborrheic keratosis; L81.4 Other melanin hyperpigmentation; D18.01 Hemangioma of skin and subcutaneous tissue; L57.8 Other skin changes due to chronic exposure to nonionizing radiation; L57.0 Actinic keratosis | CPT/HCPCS: 17000; 99214 ==

== ENCOUNTER → 2024-12-01 12:47 | Outpatient (BNVA) | payer MEDICARE, OTHER, SELFPAY | PROVIDERS: PCP Family Medicine; Visit Provider Student in an Organized Health Care Education/Training Program | DX: M67.441 Ganglion, right hand (principal) | CPT/HCPCS: 20600; 73130; 99203 ==

== ENCOUNTER → 2024-12-21 13:45 | Outpatient (BNVA) | payer MEDICARE, OTHER, SELFPAY | PROVIDERS: PCP Family Medicine; Visit Provider Emergency Medicine | DX: M79.642 Pain in left hand (principal); S69.92XA Unspecified injury of left wrist, hand and finger(s), initial encounter; X58.XXXA Exposure to other specified factors, initial encounter | CPT/HCPCS: 73130 ==

== ENCOUNTER 2024-12-21 16:54 | Outpatient (CLI) | payer MEDICARE, OTHER, SELFPAY | END 2024-12-21 16:55 | disposition home or self-care (01) | LOC: SPT 16:58 | PROVIDERS: PCP Family Medicine; Visit Provider Orthopaedic Surgery | DX: Z46.89 Encounter for fitting and adjustment of other specified devices (principal); S62.305D Unspecified fracture of fourth metacarpal bone, left hand, subsequent encounter for fracture with routine healing; S62.307D Unspecified fracture of fifth metacarpal bone, left hand, subsequent encounter for fracture with routine healing; X58.XXXD Exposure to other specified factors, subsequent encounter | CPT/HCPCS: L3807 ==

== ENCOUNTER 2024-12-23 06:53 | Outpatient (CLI) | payer MEDICARE, OTHER, SELFPAY ==
--- NOTE | 2024-12-23 07:00 | CTR_ITS ---
PROCEDURE INFORMATION: Exam: CT Left Upper Extremity Without Contrast, Hand Exam date and time: 12/23/2024 7:17 AM Age: 79 years old Clinical indication: Injury or trauma; Other: Fall playing basketball; Blunt trauma (contusions or hematomas); left; Injury details: PT was playing basketball 1 week ago. Fell on left hand hyperextending 4th and 5th digit; Additional info: Fracture TECHNIQUE: Imaging protocol: Computed tomography of the left upper extremity without contrast. Exam focused on the hand. Radiation optimization: All CT scans at this facility use at least one of these dose optimization techniques: automated exposure control; mA and/or kV adjustment per patient size (includes targeted exams where dose is matched to clinical indication); or iterative reconstruction. COMPARISON: CR XR hand LT min 3V* [id number] 12/21/2024 1:48 PM RADIATION DOSE METRICS: Total DLP (mGy-cm): 127.17 FINDINGS: Bones/joints: There are acute nondisplaced fractures involving the bases of the 4th and 5th metacarpal bones which extend to the posterior aspect of the articular surface of the 4th metacarpal bone. No additional fractures. The carpal bones are intact. There are moderate degenerative changes of the 1st carpometacarpal joint. There are mild moderate degenerative changes of the distal interphalangeal joints of the 2nd through 5th digits. Soft tissues: There is soft tissue swelling along the dorsal aspect of the 2nd metacarpal bone with subtle calcification within the dorsal soft tissues. CT/CT hand LT wo con* [id number] IMPRESSION: 1. Acute, nondisplaced fractures involving the bases of the 4th and 5th metacarpal bones with involvement of the articular surface of the proximal 4th metacarpal bone 2. No additional fractures. 3. Degenerative changes, as described above
== END 2024-12-23 06:54 | disposition home or self-care (01) ==
PROVIDERS: PCP Family Medicine; Visit Provider Student in an Organized Health Care Education/Training Program
DX: S62.315A Displaced fracture of base of fourth metacarpal bone, left hand, initial encounter for closed fracture (principal); S62.317A Displaced fracture of base of fifth metacarpal bone, left hand, initial encounter for closed fracture; W18.09XA Striking against other object with subsequent fall, initial encounter; Y93.79 Activity, other specified sports and athletics; M18.9 Osteoarthritis of first carpometacarpal joint, unspecified; M19.042 Primary osteoarthritis, left hand; M79.89 Other specified soft tissue disorders
CPT/HCPCS: 73200

== ENCOUNTER → 2024-12-29 10:07 | Outpatient (BNVA) | payer MEDICARE, OTHER, SELFPAY | PROVIDERS: PCP Family Medicine; Visit Provider Student in an Organized Health Care Education/Training Program | DX: S62.305A Unspecified fracture of fourth metacarpal bone, left hand, initial encounter for closed fracture (principal); S62.307A Unspecified fracture of fifth metacarpal bone, left hand, initial encounter for closed fracture; X58.XXXA Exposure to other specified factors, initial encounter | CPT/HCPCS: 73130 ==

== ENCOUNTER 2024-12-29 14:14 | Outpatient (CLI) | payer MEDICARE, OTHER, SELFPAY | END 2024-12-29 14:15 | disposition home or self-care (01) | LOC: SPT 14:15 | PROVIDERS: PCP Family Medicine; Visit Provider Student in an Organized Health Care Education/Training Program | DX: Z46.89 Encounter for fitting and adjustment of other specified devices (principal); S62.305D Unspecified fracture of fourth metacarpal bone, left hand, subsequent encounter for fracture with routine healing; S62.307D Unspecified fracture of fifth metacarpal bone, left hand, subsequent encounter for fracture with routine healing; X58.XXXD Exposure to other specified factors, subsequent encounter | CPT/HCPCS: 97760; L3984 ==

== ENCOUNTER 2025-01-26 16:39 | Emergency (ER) | payer MEDICARE, OTHER, SELFPAY ==
[2025-01-26 16:55] VITALS: BP 99/60; PULSE 86; RESP 18; TEMP 36.6; O2SAT 96; BMI 32.4
--- NOTE | 2025-01-26 18:43 | ED_ITS ---
HPI - Animal Bite 2 General: Chief Complaint: Animal Bite Stated Complaint: dog bite right hand Time Seen by Provider: 01/26/25 17:41 Source: patient Mode of arrival: ambulatory Limitations: no limitations History of Present Illness: 79yo male presents with dog bite to the right hand that occurred this afternoon when his own dog bit him on the hand. Patient reports the dog was trying to go outside and he thought he had his collar, but the dog is able to turn around and get his hand. States he is right-hand dominant. Reports his tetanus is up-to-date. He denies any other injury or concern at this time. Associated symptoms: Deny chills or fever(s) Related Data Home Medications ?Medication ?Instructions ?Recorded ?Confirmed glucosamine sulfate 500 mg tablet 500 mg PO BID 12/29/24 (Glucosamine) losartan 25 mg tablet 25 mg PO DAILY 02/07/2112/10 meloxicam 15 mg tablet 15 mg PO DAILY 12/01/2412/10 Previous Rx's ?Medication ?Instructions ?Recorded tamsulosin 0.4 mg capsule 0.4 mg PO DAILY #90 caps 12/02 off the shelf, ulnar gutter #1 ea 12/21/24 Ulnar Gutter Fast Form Splint #1 ea 12/29/24 amoxicillin 875 mg-potassium 1 tab PO BID 5 days #10 t abs 01/26/25 clavulanate 125 mg tablet Allergies Allergy/AdvReac Type Severity Reaction Status Date / Time venom-wasp Allergy swelling Verified 01/26/25 16:58 Review of Systems 2 Const: Denies: fever(s), chills or body aches Card: Denies: chest pain Resp: Denies: dyspnea Musc: Reports: extremity pain (right hand, dog bite) Jorge L/Lymph: Denies: easy bleeding PFSH ED 2 PFSH: Medical History Hypertension History of nonmelanoma skin cancer Urinary urgency History of kidney stones BPH (benign prostatic hyperplasia) Erectile dysfunction Surgical History S/P ureteral stent placement Family History Mother Thyroid disease Other Cancer Hypertension Social History Smoking and tobacco/nicotine status: never used tobacco/nicotine Alcohol intake: never Substance/Drug Use: never Marital status: Current occupational status: retired Physical Exam 2 Const: COMMON NORMALS: no acute distress, patient oriented x3 and alert G ENERAL APPEARANCE: cooperative ORIENTATION/CONSCIOUSNESS: Yes awake HENMT: COMMON NORMALS: normocephalic and atraumatic HEAD & SCALP: n ormocephalic and atraumatic Chest: CHEST: Yes Symmetrical chest wall rise Resp: COMMON NORMALS: normal respiratory effort EFFORT & INSPECTION: Yes able to speak in complete sentences Extremity: COMMON NORMALS: full ROM RIGHT UPPER EXTREMITY: Yes hand & digits Right hand and digits: Yes inspection (laceration) and Yes ROM exam Hand Right Back: 1. irregular 3cm laceration. Bleeding controlled at this time. FROM of hand Neuro: COMMON NORMALS: patient oriented x3 SENSORIUM/ORIENTATION: Yes alert Skin: TRAUMA: laceration irregular (right hand) Procedures Laceration Laceration 1: Site: hand Side (If applicable): right Size (cm): 3 Description: irregular Depth: simple, single layer Local Anesthetic: lidocaine 1% and with epi Amount of anesthesia used (mL): 2.5 Pre-repair: wound explored and irrigated extensively Skin layer closed with: nylon Size (cm): 4-0 Number of sutures: 2 Technique: simple, interrupted Course 2 Vital Signs: Vital signs: Vital Signs Temperature 97.8 F 01/26/25 16:55 Pulse Rate 64 01/26/25 19:02 Respiratory Rate 16 01/26/25 19:02 Blood Pressure 116/61 01/26/25 19:02 Pulse Oximetry 94 01/26/25 19:02 Oxygen Delivery Me thod Room Air 01/26/25 16:55 MDM - Animal Bite Medical Decision Making 79yo male presents with dog bite to the right hand that occurred this afternoon when his own dog bit him on the hand. Patient reports the dog was trying to go outside and he thought he had his collar, but the dog is able to turn around and get his hand. States he is right-hand dominant. Reports his tetanus is up-to-date. He denies any other injury or concern at this time. Patient is nontoxic in appearance. Vital signs are stable. Bite wound was copiously irrigated with saline and loosely closed with 2 sutures. Discussed wound care. Augmentin prescribed, first dose provided while in the emergency department. Recommend follow-up with primary care in about a week for suture removal, sooner if needed. Return precautions provided. Patient states understanding and has no further questions or concerns at this time. Differential Diagnosis Likely dog bite Medical Records I reviewed the patient's medical records. No radiology studies performed this visit Discharge Plan Discharge Patient Disposition: Home Clinical Impression: Dog bite Qualifiers: Encounter type: initial encounter Qualified Code(s): W54.0XXA - Bitten by dog, initial encounter Condition: Stable Prescriptions: New amoxicillin-pot clavulanate 875-125 mg tablet 1 tab PO BID 5 Days Qty: 10 0RF No Action glucosamine sulfate [Glucosamine] 500 mg tablet 500 mg PO BID Rx Instructions: administer with meals losartan 25 mg tablet 25 mg PO DAILY meloxicam 15 mg tablet 15 mg PO DAILY (DME) off the shelf, ulnar gutter See Rx Instructions .Route .MEDSUPPLY Qty: 1 0RF Rx Instructions: As directed (DME) Ulnar Gutter Fast Form Splint See Rx Instructions .Route .MEDSUPPLY Qty: 1 0RF Rx Instructions: As directed tamsulosin 0.4 mg Capsule 0.4 mg PO DAILY Qty: 90 0RF Discharge Orders: Discharge ED (Routine); Ordered 01/26/25 Ordered By: Navin Streeter Referrals: Ji Presley MD [Primary Care Provider, [facility]] Discharge Diet: Usual diet Discharge Activity: Increase activity as tolerated Patient Instructions: Animal Bite (ED), Pain Management Activity Restrictions/Additional Instructions: Augmentin has been sent to your pharmacy to help event infection from the dog bite Gently wash twice daily with soap and water. We expect drainage as the laceration was loosely closed to avoid abscess formation Avoid submersion under any water until the wound has healed Follow-up with primary care/urgent care in 7 days for suture removal, sooner if concern for infection Return to the emergency department if any rapid worsening symptoms, further injury, and as needed Print Language: Lithuanian Coding Level of Care Code ED M[employer] Controls Operator for Simi Falk
[2025-01-26] MEDS: amoxicillin-clav 875-125 mg Tablet 1 TAB PO (18:57)
[2025-01-26 19:02] VITALS: BP 116/61; PULSE 64; RESP 16; O2SAT 94
== END 2025-01-26 19:03 | disposition home or self-care (01) ==
PROVIDERS: Emergency Provider Nurse Practitioner; PCP Family Medicine
DX: S61.451A Open bite of right hand, initial encounter (principal); W54.0XXA Bitten by dog, initial encounter; I10 Essential (primary) hypertension; Z85.828 Personal history of other malignant neoplasm of skin
CPT/HCPCS: 12002; 99283; J9999

== ENCOUNTER → 2025-02-02 09:41 | Outpatient (BNVA) | payer MEDICARE, OTHER, SELFPAY | PROVIDERS: PCP Family Medicine; Visit Provider Student in an Organized Health Care Education/Training Program | DX: S62.305A Unspecified fracture of fourth metacarpal bone, left hand, initial encounter for closed fracture (principal); S62.307A Unspecified fracture of fifth metacarpal bone, left hand, initial encounter for closed fracture; X58.XXXA Exposure to other specified factors, initial encounter | CPT/HCPCS: 73130 ==

== ENCOUNTER 2025-02-02 10:27 | Outpatient (CLI) | payer MEDICARE, OTHER, SELFPAY | END 2025-02-02 10:28 | disposition home or self-care (01) | LOC: SOT 10:28 | PROVIDERS: PCP Family Medicine; Visit Provider Student in an Organized Health Care Education/Training Program | DX: Z46.89 Encounter for fitting and adjustment of other specified devices (principal); S62.305A Unspecified fracture of fourth metacarpal bone, left hand, initial encounter for closed fracture; S62.308A Unspecified fracture of other metacarpal bone, initial encounter for closed fracture; W21.05XA Struck by basketball, initial encounter | CPT/HCPCS: L3908 ==

== ENCOUNTER 2025-02-02 10:37 | Outpatient (RCR) | payer MEDICARE, OTHER, SELFPAY | END 2025-02-07 23:59 | disposition home or self-care (01) | LOC: SOT 10:37 | PROVIDERS: PCP Family Medicine; Visit Provider Student in an Organized Health Care Education/Training Program | DX: S62.305A Unspecified fracture of fourth metacarpal bone, left hand, initial encounter for closed fracture (principal); S62.307A Unspecified fracture of fifth metacarpal bone, left hand, initial encounter for closed fracture; X58.XXXA Exposure to other specified factors, initial encounter | CPT/HCPCS: 97110; 97165 ==

== ENCOUNTER 2025-02-08 05:00 | Outpatient (RCR) | payer MEDICARE, OTHER, SELFPAY | END 2025-03-10 23:59 | disposition home or self-care (01) | LOC: SOT 05:00 | PROVIDERS: PCP Family Medicine; Visit Provider Student in an Organized Health Care Education/Training Program | DX: S62.305A Unspecified fracture of fourth metacarpal bone, left hand, initial encounter for closed fracture (principal); X58.XXXA Exposure to other specified factors, initial encounter | CPT/HCPCS: 97022; 97110; 97140 ==

== ENCOUNTER → 2025-03-02 08:06 | Outpatient (BNVA) | payer MEDICARE, OTHER, SELFPAY | PROVIDERS: PCP Family Medicine; Visit Provider Student in an Organized Health Care Education/Training Program | DX: M67.442 Ganglion, left hand (principal) | CPT/HCPCS: 99213 ==

== ENCOUNTER 2025-03-11 05:00 | Outpatient (RCR) | payer MEDICARE, OTHER, SELFPAY | END 2025-04-10 23:59 | disposition home or self-care (01) | LOC: SOT 05:00 | PROVIDERS: PCP Family Medicine; Visit Provider Student in an Organized Health Care Education/Training Program | DX: S62.305A Unspecified fracture of fourth metacarpal bone, left hand, initial encounter for closed fracture (principal); S62.308A Unspecified fracture of other metacarpal bone, initial encounter for closed fracture; X58.XXXA Exposure to other specified factors, initial encounter | CPT/HCPCS: 97022; 97110; 97140 ==

== ENCOUNTER → 2025-03-22 13:48 | Outpatient (BNVA) | payer MEDICARE, OTHER, SELFPAY | PROVIDERS: PCP Family Medicine; Visit Provider Student in an Organized Health Care Education/Training Program | DX: S62.307D Unspecified fracture of fifth metacarpal bone, left hand, subsequent encounter for fracture with routine healing (principal); S62.305D Unspecified fracture of fourth metacarpal bone, left hand, subsequent encounter for fracture with routine healing; X58.XXXD Exposure to other specified factors, subsequent encounter | CPT/HCPCS: 73130; 99213 ==